=== PATIENT | male | born 1955 | race African-American/Black ===

== ENCOUNTER 2016-06-15 14:19 | Emergency (ER) | payer SELFPAY ==
[~2016-06-15] VITALS: Ht 182.9 cm; Wt 90.0 kg
[2016-06-15 14:22] VITALS: BP 146/86
== END 2016-06-15 15:15 | disposition left against medical advice (07) ==
LOC: ER 14:22
DX: F91.1 Conduct disorder, childhood-onset type (principal); F31.9 Bipolar disorder, unspecified
CPT/HCPCS: 82962; 99283

== ENCOUNTER 2016-07-10 07:39 | Emergency (ER) | payer SELFPAY ==
[~2016-07-10] VITALS: Ht 175.3 cm; Wt 75.0 kg
[2016-07-10 07:43] VITALS: BP 128/83
== END 2016-07-10 08:41 | disposition left against medical advice (07) ==
LOC: ER 07:57
DX: R45.851 Suicidal ideations (principal); Z53.21 Procedure and treatment not carried out due to patient leaving prior to being seen by health care provider

== ENCOUNTER 2016-07-18 15:07 | Emergency (ER) | payer MEDICAID ==
[~2016-07-18] VITALS: Ht 175.3 cm; Wt 82.0 kg
[2016-07-18 15:17] VITALS: BP 143/83
== END 2016-07-18 23:10 | disposition left against medical advice (07) ==
LOC: ER 23:07
DX: Z76.0 Encounter for issue of repeat prescription (principal); Z53.21 Procedure and treatment not carried out due to patient leaving prior to being seen by health care provider

== ENCOUNTER 2016-07-19 22:14 | Emergency (ER) | payer MEDICAID ==
[~2016-07-19] VITALS: Ht 175.3 cm; Wt 90.8 kg
[2016-07-20 03:18] LABS: BASOPHILS % 0.5 % (0.0-2.0); EOSINOPHILS % 2.3 % (0.0-5.0); HEMATOCRIT. 34.3 % (42.0-52.0); HEMOGLOBIN. 11.6 g/dL (14.0-18.0); LYMPHOCYTES % 33.6 % (20.0-50.0); MEAN CORPUSCULAR HEMOGLOBIN 28.8 pg (28.0-32.0); MEAN CORPUSCULAR VOLUME 85.2 fL (80.0-94.0); MEAN PLATELET VOLUME 7.5 fl (7.4-10.4); MONOCYTES % 11.9 % (2.0-8.0); NEUTROPHILS % 51.7 % (40.0-76.0); PLATELET 266 x1000/uL (130-400); RED BLOOD CELL COUNT 4.02 mill/uL (4.7-6.1); RED CELL DISTRIBUTION WIDTH 14.1 % (11.6-14.6)
[2016-07-20 03:25] LABS: CARBON DIOXIDE 27 mEq/L (21-32); CHLORIDE 106 mEq/L (98-107); ETHANOL BLOOD < 10 mg/dL
[2016-07-20 06:16] VITALS: BP 126/85
== END 2016-07-20 09:45 | disposition home or self-care (01) ==
LOC: ER 22:14
DX: F68.8 Other specified disorders of adult personality and behavior (principal); F31.9 Bipolar disorder, unspecified; R56.9 Unspecified convulsions; F17.200 Nicotine dependence, unspecified, uncomplicated
CPT/HCPCS: 70450; 80048; 80307; 80329; 85025; 99285; G0482

== ENCOUNTER 2018-08-31 04:09 | Emergency (ER) | payer MEDICAID ==
[~2018-08-31] VITALS: Ht 177.8 cm; Wt 88.0 kg
[2018-08-31 05:23] VITALS: BP 125/75
== END 2018-08-31 06:02 | disposition left against medical advice (07) ==
LOC: ER 04:09
DX: M54.5 Low back pain (principal); Z53.21 Procedure and treatment not carried out due to patient leaving prior to being seen by health care provider

== ENCOUNTER 2018-10-02 13:25 | Emergency (ER) | payer MEDICAID ==
[~2018-10-02] VITALS: Ht 175.3 cm; Wt 86.0 kg
[2018-10-02] MEDS ORDERED: KETOROLAC 60MG/2ML VIAL IM ONE (13:45)
[2018-10-02] MEDS ORDERED: CYCLOBENZAPRINE 10MG TABLET PO ONE (13:45)
[2018-10-02 13:53] VITALS: BP 124/87
== END 2018-10-02 13:52 | disposition home or self-care (01) ==
LOC: ER 13:25
DX: M54.2 Cervicalgia (principal); M54.5 Low back pain; M25.511 Pain in right shoulder; V49.50XA Passenger injured in collision with unspecified motor vehicles in traffic accident, initial encounter; Y93.89 Activity, other specified; Y92.410 Unspecified street and highway as the place of occurrence of the external cause
CPT/HCPCS: 96372; 99283; J1885

== ENCOUNTER 2018-11-26 14:56 | Emergency (ER) | payer MEDICAID ==
[~2018-11-26] VITALS: Ht 180.3 cm; Wt 73.0 kg
[2018-11-26 15:20] VITALS: BP 125/74
== END 2018-11-26 15:56 | disposition left against medical advice (07) ==
LOC: ER 14:56
DX: Z53.21 Procedure and treatment not carried out due to patient leaving prior to being seen by health care provider (principal)

== ENCOUNTER 2018-11-29 10:41 | Emergency (ER) | payer MEDICAID ==
[~2018-11-29] VITALS: Ht 172.7 cm; Wt 73.0 kg
[2018-11-29 11:06] VITALS: BP 110/64
== END 2018-11-29 11:15 | disposition left against medical advice (07) ==
LOC: ER 10:43
DX: Z53.21 Procedure and treatment not carried out due to patient leaving prior to being seen by health care provider (principal)

== ENCOUNTER 2018-12-07 01:54 | Emergency (ER) | payer MEDICAID ==
[~2018-12-07] VITALS: Ht 172.7 cm; Wt 71.0 kg
[2018-12-07 01:56] VITALS: BP 160/80
== END 2018-12-07 04:04 | disposition home or self-care (01) ==
LOC: ER 02:06
DX: M25.562 Pain in left knee (principal); R45.6 Violent behavior
CPT/HCPCS: 99283; Z7610

== ENCOUNTER 2023-03-22 05:51 | Emergency (ER) | payer MEDICAID, OTHER ==
[~2023-03-22] VITALS: Ht 172.7 cm; Wt 71.0 kg
[2023-03-22 06:18] VITALS: BP 114/82; PULSE 91; RESP 16; TEMP 97.9; O2SAT 100
[2023-03-22] MEDS ORDERED: CYCL10TA21 MT (06:41)
== END 2023-03-22 06:52 | disposition home or self-care (01) ==
LOC: ER 05:51
DX: S16.1XXA Strain of muscle, fascia and tendon at neck level, initial encounter (principal); V49.9XXA Car occupant (driver) (passenger) injured in unspecified traffic accident, initial encounter; Y93.89 Activity, other specified; Y92.89 Other specified places as the place of occurrence of the external cause; Y99.8 Other external cause status
CPT/HCPCS: 99283

== ENCOUNTER 2023-03-27 18:20 | Emergency (ER) | payer OTHER ==
[~2023-03-27] VITALS: Ht 175.3 cm; Wt 81.0 kg
[~2023-03-27 18:20] MED LIST: CYCL10TA21 MT
[2023-03-27 18:44] VITALS: BP 143/83; PULSE 79; RESP 16; TEMP 98.2; O2SAT 99
[2023-03-27] MEDS: KETOROLAC 60MG/2ML VIAL IM ONE (19:15)
== END 2023-03-27 20:25 | disposition left against medical advice (07) ==
LOC: ER 18:20
DX: M54.2 Cervicalgia (principal); R05.3 Chronic cough; F31.9 Bipolar disorder, unspecified; Z98.890 Other specified postprocedural states
CPT/HCPCS: 71045; 72040; 99284; J1885

== ENCOUNTER 2023-03-30 02:11 | Emergency (ER) | payer OTHER ==
[~2023-03-30] VITALS: Ht 175.3 cm; Wt 78.0 kg
[2023-03-30 02:18] VITALS: PULSE 97; O2SAT 99
[2023-03-30] MEDS ORDERED: LIDOCAINE 5% PATCH TOP SCH (03:45)
[2023-03-30 03:56] VITALS: TEMP 98.2
[2023-03-30] MEDS: ACETAMINOPHEN 325MG TABLET PO ONE (03:56)
[2023-03-30 03:58] VITALS: BP 135/86; RESP 20
[2023-03-30] MEDS: LIDOCAINE 5% PATCH TOP NR (03:58)
== END 2023-03-30 05:01 | disposition left against medical advice (07) ==
LOC: ER 02:11
DX: R07.81 Pleurodynia (principal); Z00.00 Encounter for general adult medical examination without abnormal findings; Z53.21 Procedure and treatment not carried out due to patient leaving prior to being seen by health care provider
CPT/HCPCS: 99282

== ENCOUNTER 2023-04-01 03:54 | Emergency (ER) | payer OTHER ==
[~2023-04-01] VITALS: Ht 172.7 cm; Wt 75.0 kg
[2023-04-01 04:03] VITALS: BP 149/83; PULSE 78; RESP 18; TEMP 97.9; O2SAT 99
[2023-04-01] MEDS ORDERED: MAGNESIUM/ALUMINUM HYDROXIDE/SIMETHICONE 30ML UDC PO STA (04:21)
[2023-04-01] MEDS ORDERED: ACETAMINOPHEN 325MG TABLET PO STA (04:21)
[2023-04-01 05:12] LABS: BASOPHILS % 0.4 % (0.0-2.0); EOSINOPHILS % 2.3 % (0.0-5.0); HEMATOCRIT. 37.3 % (42.0-52.0); HEMOGLOBIN. 12.1 g/dL (14.0-18.0); LYMPHOCYTES % 34.3 % (20.0-50.0); MEAN CORPUSCULAR HEMOGLOBIN 28.1 pg (28.0-32.0); MEAN CORPUSCULAR HGB CONC 32.4 g/dL (31.0-37.0); MEAN CORPUSCULAR VOLUME 86.7 fL (80.0-94.0); MEAN PLATELET VOLUME 7.5 fl (7.4-10.4); MONOCYTES % 11.2 % (2.0-8.0); NEUTROPHILS % 51.8 % (40.0-76.0); PLATELET 202 x1000/uL (130-400); WHITE BLOOD COUNT 4.7 x1000/uL (4.5-11.0)
[2023-04-01 05:22] LABS: INR 0.9; PROTHROMBIN TIME 10.1 sec (9.6-11.0)
[2023-04-01 05:28] LABS: ALANINE AMINOTRANSFERASE 30 IU/L (10-49); ASPARTATE AMINOTRANSFERASE 50 IU/L (<34); BILIRUBIN TOTAL 0.4 mg/dL (0.1-1.0); CALCIUM 8.7 mg/dL (8.7-10.4); CARBON DIOXIDE 29 mEq/L (21-32); CHLORIDE 102 mEq/L (98-107); CREATININE 0.8 mg/dL (0.6-1.3); GLUCOSE 106 mg/dL (70-105); POTASSIUM 3.9 mEq/L (3.5-5.1); PROTEIN TOTAL 7.4 g/dL (6.0-8.3); SODIUM 136 mEq/L (136-145); UREA NITROGEN BLOOD 17 mg/dL (9-23)
[2023-04-01 05:33] LABS: ETHANOL BLOOD < 10 mg/dL (<10)
== END 2023-04-01 07:55 | disposition left against medical advice (07) ==
LOC: ER 04:21
DX: R10.84 Generalized abdominal pain (principal)
CPT/HCPCS: 36415; 80053; 80320; 85025; 99283; G0480

== ENCOUNTER 2023-04-02 18:39 | Emergency (ER) | payer OTHER ==
[~2023-04-02] VITALS: Ht 177.8 cm; Wt 70.0 kg
[2023-04-02 18:54] VITALS: BP 123/77; PULSE 106; RESP 20; TEMP 98.3; O2SAT 98
== END 2023-04-03 04:04 | disposition left against medical advice (07) ==
LOC: ER 18:39
DX: R10.9 Unspecified abdominal pain (principal); Z53.21 Procedure and treatment not carried out due to patient leaving prior to being seen by health care provider
CPT/HCPCS: 99281

== ENCOUNTER 2023-06-21 06:04 | Emergency (ER) | payer OTHER ==
[~2023-06-21] VITALS: Ht 175.3 cm; Wt 78.9 kg
[2023-06-21 06:39] VITALS: BP 121/85; PULSE 96; RESP 18; TEMP 98.6; O2SAT 100
== END 2023-06-21 08:38 | disposition left against medical advice (07) ==
LOC: ER 06:04
DX: R06.00 Dyspnea, unspecified (principal); Z53.21 Procedure and treatment not carried out due to patient leaving prior to being seen by health care provider

== ENCOUNTER 2023-07-21 16:53 | Emergency (ER) | payer OTHER ==
[~2023-07-21] VITALS: Ht 175.3 cm; Wt 79.0 kg
[2023-07-21 17:12] VITALS: BP 123/86; RESP 20; TEMP 98.6; O2SAT 98
[2023-07-21 17:15] VITALS: PULSE 100
[2023-07-21] MEDS ORDERED: AMOX1TAB16 MT (19:15)
== END 2023-07-21 19:49 | disposition left against medical advice (07) ==
LOC: ER 16:53
DX: S02.609A Fracture of mandible, unspecified, initial encounter for closed fracture (principal); S02.40FA Zygomatic fracture, left side, initial encounter for closed fracture; F31.9 Bipolar disorder, unspecified; Y08.89XA Assault by other specified means, initial encounter; Y93.89 Activity, other specified; Y92.89 Other specified places as the place of occurrence of the external cause; Y99.8 Other external cause status
CPT/HCPCS: 70486; 99284

== ENCOUNTER 2023-07-27 21:50 | Emergency (ER) | payer OTHER ==
[~2023-07-27] VITALS: Ht 175.3 cm; Wt 84.0 kg
[~2023-07-27 21:50] MED LIST changes: +AMOX1TAB16 MT
[2023-07-27 21:52] VITALS: BP 134/79; PULSE 113; RESP 18; TEMP 98.4; O2SAT 100
[2023-07-27] MEDS ORDERED: IBUPROFEN 400MG TABLET PO ONE (22:45)
[2023-07-28] MEDS ORDERED: IBUP-2028 MT (00:47)
[2023-07-28] MEDS ORDERED: HYDR-4001 MT (00:47)
== END 2023-07-28 01:52 ==
LOC: ER 21:50
DX: S02.609A Fracture of mandible, unspecified, initial encounter for closed fracture (principal); S02.2XXA Fracture of nasal bones, initial encounter for closed fracture; S02.40FA Zygomatic fracture, left side, initial encounter for closed fracture; F31.9 Bipolar disorder, unspecified; F20.9 Schizophrenia, unspecified; Y08.89XA Assault by other specified means, initial encounter; Y93.89 Activity, other specified; Y92.89 Other specified places as the place of occurrence of the external cause; Y99.8 Other external cause status
CPT/HCPCS: 70486; 99284

== ENCOUNTER 2023-11-10 11:03 | Emergency (ER) | payer OTHER ==
[~2023-11-10] VITALS: Ht 177.8 cm; Wt 81.0 kg
[~2023-11-10 11:03] MED LIST changes: +HYDR-4001 MT; +IBUP-2028 MT
[2023-11-10 11:04] VITALS: BP 132/96; PULSE 60; RESP 18; TEMP 98.3; O2SAT 99
[2023-11-10] MEDS: IBUPROFEN 600MG TABLET PO ONE (11:34)
== END 2023-11-11 17:44 | disposition home or self-care (01) ==
LOC: ER 11:48
DX: S20.229A Contusion of unspecified back wall of thorax, initial encounter (principal); S10.83XA Contusion of other specified part of neck, initial encounter; F31.9 Bipolar disorder, unspecified; F20.9 Schizophrenia, unspecified; X58.XXXA Exposure to other specified factors, initial encounter; Y93.9 Activity, unspecified; Y92.89 Other specified places as the place of occurrence of the external cause; Y99.8 Other external cause status
CPT/HCPCS: 99283

== ENCOUNTER 2024-03-03 16:51 | Emergency (ER) | payer OTHER ==
[~2024-03-03] VITALS: Ht 177.8 cm; Wt 82.0 kg
[2024-03-03 16:52] VITALS: BP 126/74; PULSE 94; RESP 18; TEMP 98.6; O2SAT 99
== END 2024-03-03 20:14 | disposition left against medical advice (07) ==
LOC: ER 16:51
DX: M79.605 Pain in left leg (principal); M79.604 Pain in right leg; F20.9 Schizophrenia, unspecified; F31.9 Bipolar disorder, unspecified; Z53.21 Procedure and treatment not carried out due to patient leaving prior to being seen by health care provider

== ENCOUNTER 2024-03-07 22:08 | Emergency (ER) | payer OTHER ==
[~2024-03-07] VITALS: Ht 182.9 cm; Wt 82.0 kg
[2024-03-07 22:17] VITALS: BP 112/68; PULSE 82; RESP 18; TEMP 98; O2SAT 97
== END 2024-03-08 05:26 | disposition home or self-care (01) ==
LOC: ER 22:08
DX: F10.129 Alcohol abuse with intoxication, unspecified (principal); F20.9 Schizophrenia, unspecified; F31.9 Bipolar disorder, unspecified; Y90.9 Presence of alcohol in blood, level not specified
CPT/HCPCS: 99284

== ENCOUNTER 2024-03-19 00:36 | Emergency (ER) | payer OTHER ==
[~2024-03-19] VITALS: Ht 165.1 cm; Wt 78.6 kg
[2024-03-19 00:54] VITALS: BP 160/96; TEMP 37.2; O2SAT 100
[2024-03-19 01:00] VITALS: PULSE 102; RESP 16; O2SAT 98
[2024-03-19] MEDS ORDERED: KETOROLAC 15MG/ML VIAL IM ONE (01:15)
== END 2024-03-19 04:22 | disposition left against medical advice (07) ==
LOC: ER 00:36
DX: S02.609A Fracture of mandible, unspecified, initial encounter for closed fracture (principal); Z79.899 Other long term (current) drug therapy; Z98.890 Other specified postprocedural states; Y04.0XXA Assault by unarmed brawl or fight, initial encounter; Y93.89 Activity, other specified; Y92.89 Other specified places as the place of occurrence of the external cause; Y99.8 Other external cause status
CPT/HCPCS: 70486; 99284